=== PATIENT | male | born 1960 | race Caucasian/White ===

== ENCOUNTER → 2020-07-08 | Outpatient (CLI) | payer OTHER ==
--- NOTE | 2020-07-08 13:03 | RAD ---
EXAM: Lumbar spine, flexion and extension. HISTORY: Pain. COMPARISON: None. FINDINGS: Frontal, lateral, flexion and extension views of the lumbar spine are obtained. There is mi nimal levocurvature centered at L4. There is grade 1 anterolisthesis of L4 and L5, measuring 5 mm. Th ere is mild multilevel endplate remodeling. There is facet arthropathy at the lower lumbar levels. IMPRESSION: 1. Grade 1 anterolisthesis of L4 on L5 and minimal scoliosis centered at L4. 2. Mild multilevel endplate remodeling. 3. No acute osseous finding. Electronically signed by: Ashwini Malin MD (07/08/2020 1:01 PM) [id number]
== END ==
LOC: RAD 11:40
PROVIDERS: ATTEND Neurological Surgery
DX: M47.816 Spondylosis without myelopathy or radiculopathy, lumbar region (principal); M43.16 Spondylolisthesis, lumbar region; Z98.1 Arthrodesis status
CPT/HCPCS: 72110